=== PATIENT | male | born 1965 | race African-American/Black ===

== ENCOUNTER 2019-07-30 13:47 | Emergency (ER) | payer OTHER ==
[~2019-07-30] VITALS: Ht 182.9 cm; Wt 108.0 kg
[2019-07-30 14:25] LABS: ABSOLUTE NEUTROPHILS 2.2 thou/uL (1.4-8.2); BASOPHILS 0.5 % (0.0-2.0); EOSINOPHILS 1.5 % (0.0-3.0); HEMATOCRIT 42.5 % (42.0-52.0); HEMOGLOBIN 13.7 gm/dL (14.0-18.0); LYMPHOCYTES 51.1 % (24.0-44.0); MCHC 32.3 g/dL (28.0-37.0); MCV 89.8 fL (80.0-100.0); MONOCYTES 6.3 % (1.0-8.0); PLATELET COUNT 176 thou/uL (150-400); POLYS 40.6 % (36.0-66.0); RBC 4.73 mil/uL (4.50-6.00); RDW 13.9 % (10.5-14.5); WBC 5.5 thou/uL (4.0-11.0)
[2019-07-30] MEDS ORDERED: HYDROCHLOROTHIA25 M2 PO (14:35)
[2019-07-30] MEDS ORDERED: LORATIDINE 10 M10 M1 PO (14:35)
[2019-07-30 14:36] LABS: CALCIUM 9.4 mg/dL (8.5-10.1); CREATININE 0.8 mg/dL (0.7-1.3)
[2019-07-30] MEDS ORDERED: SUPER THERAVIT1 EACH PO (14:36)
[2019-07-30] MEDS ORDERED: OLANZAPINE10 M1 PO (14:36)
[2019-07-30] MEDS ORDERED: MULTIVITAMINS1 EAC7 PO (14:36)
[2019-07-30] MEDS ORDERED: BENZTROPINE MES1 MG PO (14:37)
[2019-07-30] MEDS ORDERED: SEROQUEL 100 M100 M1 PO (14:37)
[2019-07-30] MEDS ORDERED: QUETIAPINE FUM400 MG PO (14:38)
[2019-07-30] MEDS ORDERED: BUSPIRONE HCL10 MG PO (14:39)
[2019-07-30] MEDS ORDERED: DEPAKOTE 250MG250 MG PO (14:40)
[2019-07-30] MEDS ORDERED: LOPERAMIDE 2 MG2 M1 PO (14:41)
[2019-07-30] MEDS ORDERED: MUPIROCIN15 GM TOP (14:41)
[2019-07-30] MEDS ORDERED: MILK OF MA400 MG/5 M PO (14:41)
[2019-07-30 14:42] LABS: ALBUMIN 3.5 g/dL (3.4-5.0); TOTAL BILIRUBIN 0.2 mg/dL (<0.1-1.0); TOTAL PROTEIN 7.5 g/dL (6.4-8.2)
[2019-07-30] MEDS ORDERED: NAPROSYN500 M1 PO (14:42)
[2019-07-30] MEDS ORDERED: MIRALAX119 GM PO (14:43)
[2019-07-30] MEDS ORDERED: SENNA PLUS TAB1 EACH PO (15:48)
[2019-07-30] MEDS ORDERED: KRISTALOSE20 GM PO (15:48)
[2019-07-30] MEDS ORDERED: FLEET ENEMA EX230 ML RECTAL (15:48)
[2019-07-30 16:02] VITALS: BP 138/78
== END 2019-07-30 16:03 | disposition home or self-care (01) ==
LOC: ER 13:47
PROVIDERS: Physician Assistant
DX: K59.00 Constipation, unspecified (principal); R10.84 Generalized abdominal pain; Z79.899 Other long term (current) drug therapy